=== PATIENT | female | born 1955 | race Hispanic/Latino ===

== ENCOUNTER 2017-12-19 12:05 | Emergency (ER) | payer MEDICARE ==
[2017-12-19 12:26] VITALS: RESP 18; TEMP 98.6; BMI 23.6
[2017-12-19] MEDS ORDERED: Magnesium Sulfate 1 gm in D5W 1 GM/100 ML BAG IVPB ONE (12:45)
[2017-12-19] MEDS ORDERED: Sodium Chloride 0.9% 1,000 ML IV STA (12:45)
[2017-12-19] MEDS ORDERED: Apap-Butalbital-Caffeine 325-50-40mg Tab PO ONE (12:46)
--- NOTE | 2017-12-19 12:49 | ED PDOC ---
Arrival/HPI - General Chief Complaint: Headache Time Seen by Provider: 12/19/17 12:41 Historian: Patient - History of Present Illness Narrative History of Present Illness (Text): 12/19/17 12:49 pt p/w + 2 days onset of worsening left sided headache, slightly waxing and waning, at most pain was yesterday ~ 10/10; pt also noted slight left mid-face numbness/tingling, feeling left facial puffiness; pt states no trauma, pt states no fever/chills/sweats, no neck pain, no vision changes, no cp/sob/ palpitations, no abd pain, + nausea, no vomiting, no appetite changes, no urinary/bowel changes, no arm/leg weakness/numbness/tingling; pt denied rashes, no other complaints; pt is here for further eval. pt states she has prior hx of headaches but never this severe and occurring once in a [place], as well as headaches were usually diffuse pt states she tried advil/motrin/excedrin and naprosyn (yesterday) - with very mild relief, pain at that time was 7/10 PCP: Dr Lombardo hx of polymyositis (was followed with by a neurologists at [place], has not seen him for years) pt is right hand dominate FMHx: pt's Son dx with migraine hx no early onset CVA in family hx Time/Duration: < week (2 days) Symptom Onset: Sudden Symptom Course: Worsening Quality: Tightness, Stabbing, Cramping Severity Level: 10, Severe Activities at Onset: Rest Context: Home Past Medical History - Provider Review Nursing Documentation Reviewed: Yes - Travel History Have you recently traveled outside [place] w/in the past 3 mons?: No - Past History Past History: No Previous - Infectious Disease Hx of Infectious Diseases: None - Tetanus Immunization Tetanus Immunization: Unknown - Reproductive Menopause: Yes Currently : No - Cardiac Hx Hypertension: Yes - Psychiatric Hx Substance Use: No - Anesthesia Hx Anesthesia: No Hx Anesthesia Reactions: No Hx Malignant Hyperthermia: No Family/Social History - Physician Review Nursing Documentation Reviewed: Yes Family/Social History: No Known Family HX Smoking Status: Never Smoked Hx Alcohol Use: No Hx Substance Use: No Hx Substance Use Treatment: No Allergies/Home Meds Allergies/Adverse Reactions: Allergies No Known Allergies Allergy (Unverified 12/19/17 12:42) Home Medications: Home Meds Medication Instructions Recorded Confirmed Lisinopril [Zestril] 10 mg PO BID 12/19/17 12/19/17 Review of Systems - Review of Systems Constitutional: Normal Eyes: Normal ENT: Normal Respiratory: Normal. absent: SOB Cardiovascular: Normal. absent: Chest Pain Gastrointestinal: Nausea. absent: Abdominal Pain Genitourinary Female: Normal Musculoskeletal: Normal Skin: Normal Neurological: Headache, Other (left mid-facial numbness/tingling). absent: Dizziness Endocrine: Normal Hemo/Lymphatic: Normal Psychiatric: Normal Physical Exam Vital Signs Reviewed: Yes Vital Signs Temp Pulse Resp BP Pulse Ox 12/19/17 15:24 68 18 134/74 98 12/19/17 13:06 65 18 136/78 98 12/19/17 12:18 98.6 F 68 18 99 Temperature: Afebrile Blood Pressure: Normal Pulse: Regular Respiratory Rate: Normal Appearance: Positive for: Well-Appearing, Non-Toxic, Uncomfortable, Other (alert /awake, uncomfortable, resting in bed, NAD, cooperative, GCS = 15, oriented x 3) Pain Distress: Mild Mental Status: Positive for: Alert and Oriented X 3 - Systems Exam Head: Present: Atraumatic, Normocephalic Pupils: Present: PERRL, Other (no photophobia, sclera anicteric, no nystagmus, visual field intact b/l) Extroacular Muscles: Present: EOMI Conjunctiva: Present: Normal Ears: Present: Normal Mouth: Present: Moist Mucous Membranes, Normal Teeth, Other (uvula/tongue are midline, no exudate/lesions, no drooling/stridor, intact dentitions) Pharnyx: Present: Normal Nose (External): Present: Atraumatic Nose (Internal): Present: Normal Inspection Neck: Present: Normal Range of Motion, Trachea Midline, Other (intact ROM, no midline tenderness, no step off, intact ROM). No: Meningeal Signs, MIDLINE TENDERNESS, Paraspinal Tenderness Respiratory/Chest: Present: Clear to Auscultation, Good Air Exchange, Other ( CTA b/l, no w/r/r). No: Respiratory Distress, Accessory Muscle Use Cardiovascular: Present: Regular Rate and Rhythm, Normal S1, S2. No: Murmurs Abdomen: Present: Normal Bowel Sounds, Other (well nourished female, no focal tenderness, no poe's sign, no mcburney's point tenderness, no masses/rebound/ guarding/rigidity) Back: Present: Normal Inspection. No: CVA Tenderness, Midline Tenderness, Paraspinal Tenderness Upper Extremity: Present: Normal Inspection, Normal ROM, NORMAL PULSES, Neurovascularly Intact Lower Extremity: Present: Normal Inspection, NORMAL PULSES, Normal ROM, Neurovascularly Intact Neurological: Present: GCS=15, Speech Normal, Other (faint left facial droop, no slurr speech, oriented x 3, GCS = 15) Skin: Present: Warm, Normal Color, Other (cap refill < 1sec, no ulcerations, no petechiae, no rashes, no lesions) Psychiatric: Present: Alert, Oriented x 3 Medical Decision Making ED Course and Treatment: 12/19/17 12:41 Impression: left sided headache i have consider all the differential diagnosis regarding pt's chief medical complaints/clinical findings, including but are not limited to: left sided headache A/P: left sided headache - labs - iv - ct - xray - supportive care - observe/reevaluation 12/19/17 15:00 Upon reassessment, patient informs improvement of symptoms, rating headache 5/ 10 and with no new complaints. Waiting on diagnostic results. 12/19/17 16:00 pt remained comfortable pt is not in any distress I spoke to Dr Tim, immigration lawyer neurologists, made aware, agrees with ED mgt/txt/dx , recommend mg oxide BID for home, and will f/u with patient as outpt 1615 vital signs are stable pt is made aware of her medical results pt is encouraged fluids pt is instructed on symptoms of CVA/TIA and to return immediately if said such symptoms pt will f/u as directed pt will be discharged home Re-evaluation Time: 15:30 Reassessment Condition: Improving,but remains with symptoms - Lab Interpretations Lab Results: 12/19/17 13:15 12/19/17 13:15 Lab Results 12/19/17 13:57: Urine Color Yellow, Urine Appearance Clear, Urine pH 7.0, Ur Specific [place] 1.010, Urine Protein Negative, Urine Glucose (UA) Negative, Urine Ketones Negative, Urine Blood Negative, Urine Nitrate Negative, Urine Bilirubin Negative, Urine Urobilinogen 0.2, Ur Leukocyte Esterase Negative 12/19/17 13:15: C-React Prot High Sens Pending, TSH 3rd Generation 2.99 12/19/17 13:15: WBC 5.2, RBC 4.02, Hgb 11.8 L, Hct 37.0, MCV 92.0, MCH 29.4, MCHC 31.9, RDW 14.0, Plt Count 240, MPV 9.2, Gran % 47.3 L, Lymph % (Auto) 46.0 H, [place] % (Auto) 5.0, Eos % (Auto) 1.5, Baso % (Auto) 0.2, Gran # 2.48, Lymph # (Auto) 2.4, [place] # (Auto) 0.3, Eos # (Auto) 0.1, Baso # (Auto) 0.01, ESR 20 12/19/17 13:15: Sodium 143, Potassium 4.6, Chloride 107, Carbon Dioxide 27, Anion Gap 13, BUN 9, Creatinine 0.5 L, Est GFR ( Amer) > 60, Est GFR (Non -Af Amer) > 60, Random Glucose 85, Calcium 8.9, Total Bilirubin 0.4, AST 26, ALT 21, Alkaline Phosphatase 80, Total Creatine Kinase 64, Total Protein 6.8, Albumin 4.2, Globulin 2.6, Albumin/Globulin Ratio 1.6, Lipase 126 I have reviewed the lab results: Yes Interpretation: All labs normal - RAD Interpretation Narrative RAD Interpretations (Text): 12/19/17 13:31 CXR reviewed by radiologist, shows: Findings: PLEURA: No significant pleural effusion identified, no pneumothorax apparent. CARDIOVASCULAR: Normal. OSSEOUS STRUCTURES: No significant abnormalities. VISUALIZED UPPER ABDOMEN: Normal. OTHER FINDINGS: None. IMPRESSION: No active disease. 12/19/17 14:32 CT of head reviewed by radiologist, shows: HEMORRHAGE: No intracranial hemorrhage. BRAIN: No mass effect or edema. No atrophy or chronic microvascular ischemic changes. VENTRICLES: Unremarkable. No hydrocephalus. CALVARIUM: Unremarkable. PARANASAL SINUSES: Unremarkable as visualized. No significant inflammatory changes. MASTOID AIR CELLS: Unremarkable as visualized. No inflammatory changes. OTHER FINDINGS: None. IMPRESSION: No acute findings Radiology Orders: 12/19/17 12:42 HEAD W/O CONTRAST [CT] Stat 12/19/17 12:44 CHEST PORTABLE [RAD] Stat Gravedigger: Radiologist - EKG Interpretation EKG Interpretation (Text): 12/19/17 13:15 NSR at 60 bpm, normal axis, no ectopy, inverted T in leads III, V1, no st changes, BORDERLINE EKG; no old ekg to compare with Interpreted by ED Physician: Yes Type: 12 lead EKG Comparison: No previous EKG avail. - Medication Orders Current Medication Orders: Discontinued Medications Acetaminophen/Butalbital/Caffeine (Fioricet) 1 tab PO ONCE ONE Stop: 12/19/17 12:47 Last Admin: 12/19/17 13:30 Dose: 1 tab MAR Pain Assessment Document 12/19/17 13:30 SF (Rec: 12/19/17 13:30 [email or web address] Pain Reassessment Is this a pain reassessment? Yes Sleep Is patient sleeping during reassessment? No Presence of Pain Presence of Pain Yes Pain Scale Used Pain Scale Used Numeric Magnesium Sulfate/Dextrose (Magnesium Sulfate 1 Gm/100 Ml D5w) 1 gm in 100 mls @ 100 mls/hr IVPB ONCE ONE Stop: 12/19/17 13:44 Last Admin: 12/19/17 14:13 Dose: 100 mls/hr eMAR Start Stop Document 12/19/17 14:13 SF (Rec: 12/19/17 14:13 [email or web address]) Intravenous Solution Start Date 12/19/17 Start Time 14:13 End Date 12/19/17 End time 15:13 Total Infusion Time 60 Sodium Chloride (Sodium Chloride 0.9%) 1,000 mls @ 999 mls/hr IV .Q1H1M STA Stop: 12/19/17 13:45 Last Admin: 12/19/17 13:00 Dose: 999 mls/hr eMAR Start Stop Document 12/19/17 13:00 SF (Rec: 12/19/17 13:30 [email or web address]) Intravenous Solution Start Date 12/19/17 Start Time 13:00 End Date 12/19/17 End time 14:01 Total Infusion Time 61 Ketorolac Tromethamine (Toradol) 30 mg IVP STAT STA Stop: 12/19/17 12:46 Last Admin: 12/19/17 13:30 Dose: 30 mg MAR Pain Assessment Document 12/19/17 13:30 SF (Rec: 12/19/17 13:31 [email or web address] Pain Reassessment Is this a pain reassessment? Yes Sleep Is patient sleeping during reassessment? No Presence of Pain Presence of Pain Yes Location Pain Location Body Site Joint IVP Administration Document 12/19/17 13:30 SF (Rec: 12/19/17 13:31 [email or web address] Charges for Administration # of IVP Administrations 1 Metoclopramide HCl (Reglan) 10 mg IVP STAT STA Stop: 12/19/17 12:46 Last Admin: 12/19/17 13:30 Dose: 10 mg IVP Administration Document 12/19/17 13:30 SF (Rec: 12/19/17 13:30 [facility] Charges for Administration # of IVP Administrations 1 NIHSS Stroke Scale 3 - Date/Time Evaluation Performed Date Performed: 12/19/17 Time Performed: 12:30 When Was NIHSS Performed: Baseline - How Severe is the Stroke Level of Consciousness: 0=Alert LOC to Questions: 0=Both comments correct LOC to commands: 0=Obeys both correctly Best Gaze: 0=Normal Visual: 0=No visual loss Facial: 1=Minor asymmetry Motor Arm - Left: 0=No drift Motor Arm - Right: 0=No drift Motor Leg - Left: 0=No drift Motor Leg - Right: 0=No drift Limb Ataxia: 0=Absent Sensory: 0=Normal Best Language: 0=No aphasia Dysarthia: 0=Normal articulation Extinction & Inattention (Neglect): 0=Normal, no object Score: 1 Disposition/Present on Arrival - Present on Arrival Any Indicators Present on Arrival: No History of DVT/PE: No History of Uncontrolled Diabetes: No Urinary Catheter: No History of Decub. Ulcer: No History Surgical Site Infection Following: None - Disposition Have Diagnosis and Disposition been Completed?: Yes Diagnosis: Headache, General medical exam Disposition: HOME/ ROUTINE Disposition Time: 16:28 Patient Plan: Discharge Patient Problems: Current Active Problems Problem Status Onset General medical exam Acute Headache Acute Condition: STABLE Discharge Instructions (ExitCare): Headache, Adult Print Language: ALBANIAN Additional Instructions: Make sure to see your doctor in 1-2 days DRINK PLENTY OF FLUIDS take your medications as prescribed RETURN TO ED IF worse pain, cant breath, persistent vomiting, high fever >101- 102 for hours, altered behavior, slurr speech, vision changes, facial changes, focal weakness (arm/leg or both), unable to urinate, heavy/persistent bleeding, passing out, chest pain, or other medical emergencies Prescriptions: Ibuprofen [Motrin] 400 mg PO QID PRN #30 tab PRN Reason: Pain, Mild (1-3) Magnesium Oxide [Mag-Ox] 400 mg PO BID PRN #30 tab PRN Reason: Headache Metoclopramide [Reglan] 10 mg PO TID PRN #20 tab PRN Reason: Nausea/Vomiting Referrals: Giorgio Lombardo MD [Primary Care Provider] - Follow up with primary Juan Antonio Tim MD [Staff Provider] - Follow up with primary Forms: 5by (Indonesian)
--- NOTE | 2017-12-19 13:16 | RAD ---
HISTORY: left facial numbness/tingling/avendaño COMPARISON: No prior. FINDINGS: LUNGS: No active pulmonary disease. PLEURA: No significant pleural effusion identified, no pneumothorax apparent. CARDIOVASCULAR: Normal. OSSEOUS STRUCTURES: No significant abnormalities. VISUALIZED UPPER ABDOMEN: Normal. OTHER FINDINGS: None. IMPRESSION: No active disease.
[2017-12-19 13:24] LABS: BASO # 0.01 K/mm3 (0.0-2.0); BASO % 0.2 % (0.0-3.0); EOS # 0.1 (0.0-0.7); EOS % 1.5 % (1.5-5.0); GRAN # 2.48 (1.4-6.5); GRAN % 47.3 % (50.0-68.0); HEMOGLOBIN 11.8 g/dL (12.0-16.0); LYMPH # 2.4 (1.2-3.4); MEAN CORPUSCULAR HEMOGLOBIN 29.4 pg (25.0-35.0); MEAN CORPUSCULAR HGB CONC 31.9 g/dl (31.0-37.0); MEAN PLATELET VOLUME 9.2 fl (7.0-11.0); MONO # 0.3 (0.1-0.6); RBC 4.02 10^6/uL (3.5-6.1); WHITE BLOOD COUNT 5.2 10^3/ul (4.5-11.0)
[2017-12-19 13:32] LABS: ALB/GLOB RATIO 1.6 (1.1-1.8); ALBUMIN 4.2 g/dL (3.0-4.8); ALT/SGPT 21 U/L (7-56); AST/SGOT 26 U/L (14-36); BLOOD UREA NITROGEN 9 mg/dL (7-21); CALCIUM 8.9 mg/dL (8.4-10.5); GFR AFRICAN-AMERICAN > 60; GFR NON-AFRICAN AMERICAN > 60; LIPASE 126 U/L (23-300)
--- NOTE | 2017-12-19 13:55 | CT ---
PROCEDURE: CT HEAD WITHOUT CONTRAST. HISTORY: left sided headache, left facial tingling COMPARISON: None available. TECHNIQUE: Axial computed tomography images were obtained through the head/brain without intravenous contrast. Radiation dose: Total exam DLP = 963 mGy-cm. This CT exam was performed using one or more of the following dose reduction techniques: Automated exposure control, adjustment of the mA and/or kV according to patient size, and/or use of iterative reconstruction technique. FINDINGS: HEMORRHAGE: No intracranial hemorrhage. BRAIN: No mass effect or edema. No atrophy or chronic microvascular ischemic changes. VENTRICLES: Unremarkable. No hydrocephalus. CALVARIUM: Unremarkable. PARANASAL SINUSES: Unremarkable as visualized. No significant inflammatory changes. MASTOID AIR CELLS: Unremarkable as visualized. No inflammatory changes. OTHER FINDINGS: None. IMPRESSION: No acute findings
[2017-12-19 14:05] LABS: URINE BILIRUBIN NEGATIVE (NEGATIVE); URINE BLOOD NEGATIVE (NEGATIVE); URINE COLOR YELLOW (YELLOW); URINE GLUCOSE (UA) NEGATIVE (NEGATIVE); URINE LEUKOCYTE ESTERASE NEGATIVE Leu/uL (NEGATIVE); URINE PROTEIN NEGATIVE mg/dL (<30 mg/dL); URINE UROBILINOGEN 0.2 E.U./dL (<1 E.U./dL)
[2017-12-19 14:06] LABS: URINE APPEARANCE CLEAR (CLEAR)
[2017-12-19 16:39] VITALS: BP 135/80; PULSE 62; O2SAT 99
--- NOTE | 2017-12-19 18:39 | CARD ---
APPROVED REPORT EKG Measurement Heart [id number] <Conclusion> Normal sinus rhythm Normal ECG
== END 2017-12-19 16:48 | disposition home or self-care (01) ==
LOC: ED 12:05
DX: Z00.00 Encounter for general adult medical examination without abnormal findings (principal); R51 Headache; I10 Essential (primary) hypertension
CPT/HCPCS: 70450; 71045; 80053; 81003; 82550; 83690; 84443; 85025; 85651; 86140; 93005; 96361; 96365; 96375; 99285; J1885; J2765; J3475; J7040